=== PATIENT | male | born 1995 | race Caucasian/White ===

== ENCOUNTER 2024-01-22 18:27 | Emergency (ER) | payer SELFPAY ==
[~2024-01-22] VITALS: Ht 180.3 cm; Wt 70.0 kg
[2024-01-22 18:31] VITALS: O2SAT 99
[2024-01-22] MEDS: ONDANSETRON HCL 4MG/2ML INJ IV STA (18:45)
[2024-01-22] MEDS: MORPHINE SULFATE 4 MG/ML INJ (FOR IV/IM USE) IV STA (18:45)
[2024-01-22] MEDS: SODIUM CHLORIDE 0.9% 1,000 ML IV ONE (18:45)
[2024-01-22 18:46] LABS: BASOPHILS % 0.3 % (0.0-2.0); EOSINOPHILS % 0.9 % (0.0-5.0); HEMATOCRIT. 37.2 % (42.0-52.0); HEMOGLOBIN. 12.9 g/dL (14.0-18.0); LYMPHOCYTES % 31.6 % (20.0-50.0); MEAN CORPUSCULAR HEMOGLOBIN 29.6 pg (28.0-32.0); MEAN CORPUSCULAR HGB CONC 34.8 g/dL (31.0-37.0); MEAN PLATELET VOLUME 7.7 fl (7.4-10.4); NEUTROPHILS % 62.2 % (40.0-76.0); PLATELET 337 x1000/uL (130-400); RED BLOOD CELL COUNT 4.38 mill/uL (4.7-6.1); RED CELL DISTRIBUTION WIDTH 13.5 % (11.6-14.6)
[2024-01-22 18:51] LABS: CHLORIDE 105 mEq/L (98-107); POTASSIUM 3.4 mEq/L (3.5-5.1); SODIUM 137 mEq/L (136-145)
[2024-01-22 18:52] LABS: CARBON DIOXIDE 28 mEq/L (21-32)
[2024-01-22 18:53] LABS: CALCIUM 9.2 mg/dL (8.7-10.4)
[2024-01-22 18:56] LABS: PROTHROMBIN TIME 11.2 sec (9.6-11.0)
[2024-01-22 18:57] LABS: GLUCOSE 124 mg/dL (70-105)
[2024-01-22 18:58] LABS: UREA NITROGEN BLOOD 12 mg/dL (9-23)
[2024-01-22] MEDS: TETANUS, DIPHTHERIA, PERTUSSIS VAC/PF 0.5ML (>10YR OLD) IM ONE (19:20)
[2024-01-22] MEDS: LIDOCAINE HCL/EPINEPHRINE 1%-EPI 1:100,000 20 ML VIAL INFIL ONE (19:30)
[2024-01-22] MEDS: BACITRACIN ZINC OINT UDPKT TOP ONE (19:30)
[2024-01-22] MEDS ORDERED: IOHEXOL-300 100 ML BOTTLE ONE (20:05)
[2024-01-22] MEDS ORDERED: IBUP-2029 MT (20:44)
[2024-01-22] MEDS ORDERED: CEPH500C2 MT (20:44)
[2024-01-22 21:16] VITALS: BP 129/78; PULSE 80; RESP 20; TEMP 98.3
== END 2024-01-22 21:18 | disposition home or self-care (01) ==
LOC: ER 18:27
DX: S21.112A Laceration without foreign body of left front wall of thorax without penetration into thoracic cavity, initial encounter (principal); S71.112A Laceration without foreign body, left thigh, initial encounter; X58.XXXA Exposure to other specified factors, initial encounter; Y93.89 Activity, other specified; Y92.89 Other specified places as the place of occurrence of the external cause; Y99.8 Other external cause status
CPT/HCPCS: 80048; 85025; 85610; 36415; 71045; 74177; 90715; 90471; 96361; 96374; 96375; 99285; Q9967; J3490; J2405; J2270; J7030; Z7610 ×3